=== PATIENT | female | born 1960 | race Caucasian/White ===

== ENCOUNTER → 2020-07-16 08:21 | Outpatient (BNVA) | payer BC, SELFPAY | PROVIDERS: PCP Internal Medicine; Referring Provider Internal Medicine; Visit Provider Surgery | DX: Z76.89 Persons encountering health services in other specified circumstances (principal) ==

== ENCOUNTER → 2020-08-12 08:08 | Outpatient (BNVA) | payer BC, SELFPAY | PROVIDERS: PCP Internal Medicine; Referring Provider Internal Medicine; Visit Provider Surgery | DX: Z76.89 Persons encountering health services in other specified circumstances (principal) ==

== ENCOUNTER → 2020-09-23 08:23 | Outpatient (BNVA) | payer BC, SELFPAY | PROVIDERS: PCP Internal Medicine; Visit Provider Surgery | DX: Z76.89 Persons encountering health services in other specified circumstances (principal) ==

== ENCOUNTER → 2020-10-25 08:14 | Outpatient (BNVA) | payer BC, SELFPAY | PROVIDERS: PCP Internal Medicine; Visit Provider Surgery | DX: Z76.89 Persons encountering health services in other specified circumstances (principal) ==

== ENCOUNTER → 2020-11-06 10:54 | Outpatient (BNVA) | payer BC, SELFPAY | PROVIDERS: PCP Internal Medicine; Visit Provider Internal Medicine | DX: Z76.89 Persons encountering health services in other specified circumstances (principal) ==

== ENCOUNTER → 2020-11-29 08:25 | Outpatient (BNVA) | payer BC, SELFPAY | PROVIDERS: PCP Internal Medicine; Visit Provider Surgery ==

== ENCOUNTER → 2021-01-03 08:17 | Outpatient (BNVA) | payer BC, SELFPAY | PROVIDERS: PCP Internal Medicine; Visit Provider Surgery ==

== ENCOUNTER → 2021-02-12 08:07 | Outpatient (BNVA) | payer BC, SELFPAY | PROVIDERS: PCP Internal Medicine; Visit Provider Surgery ==

== ENCOUNTER → 2022-01-15 09:39 | Outpatient (BNVA) | payer BC, SELFPAY | PROVIDERS: PCP Internal Medicine; Visit Provider Internal Medicine | DX: I48.0 Paroxysmal atrial fibrillation (principal); Z79.899 Other long term (current) drug therapy; Z98.84 Bariatric surgery status; Z51.81 Encounter for therapeutic drug level monitoring | CPT/HCPCS: 93005 ==

== ENCOUNTER 2023-05-18 11:29 | Emergency (ER) | payer BC, SELFPAY ==
--- NOTE | ~2023-05-18 | CT_ITS ---
EXAMINATION: CT ABDOMEN AND PELVIS WITHOUT CONTRAST CLINICAL INFORMATION: Lower abdominal pain. COMPARISON: Abdominal ultrasound dated 05/09/2020. TECHNIQUE: Multidetector volumetric imaging was performed from the superior aspect of the liver through the pubic symphysis. Sagittal and coronal reformatted images were obtained on the technologist's workstation. Lack of intravenous and oral contrast limits visceral evaluation. This CT examination was performed using dose optimization techniques as appropriate, variously including the following: *Automated exposure control *Adjustment of mA and/or kV according to patient size (this includes techniques or standardized protocols for targeted exams where dose is matched to indication/reason for exam; i.e. extremities or head) *Use of iterative reconstruction technique DLP: 712 mGy-cm FINDINGS: LUNG BASES: The visualized lung bases are unremarkable. LIVER, GALLBLADDER, AND BILIARY TREE: Hepatic diffuse decreased attenuation and cirrhosis without focal abnormality. Tiny intraluminal calcifications without surrounding abnormality. No significant biliary ductal dilatation. PANCREAS: Unremarkable. SPLEEN: Unremarkable. ADRENAL GLANDS: Unremarkable. KIDNEYS AND URETERS: The kidneys are normal in size, shape, and attenuation. No hydronephrosis, hydroureter, or calculi seen. No perinephric stranding. BLADDER: Unremarkable. GASTROINTESTINAL TRACT: Post surgical changes are seen proximally in the stomach without abnormality distally. The remainder of the stomach and appendix are unremarkable. The colon ABDOMINAL WALL: No significant hernia is appreciated. LYMPH NODES: No lymphadenopathy. VASCULAR: Upper esophageal and paraesophageal varices are seen. Mild to moderate atherosclerosis. No significant dilatation. PELVIC VISCERA: Coarse calcifications associated with the uterus without abnormality. No adnexal abnormality. OSSEOUS STRUCTURES: Mild degenerative disc disease at L5-S1. Mild superior plate compression deformity with Schmorl's node at T11. CT/CT abdomen pelvis wo IV con IMPRESSION: 1. Hepatic steatosis and cirrhosis without focal abnormality. Upper esophageal/paraesophageal varices without other significant abnormality. 2. Cholelithiasis without evidence for acute cholecystitis. 3. Proximal gastric postsurgical changes without abnormality. 4. L5-S1 mild degenerative disc disease.
[2023-05-18 11:32] VITALS: BP 184/95; PULSE 113; RESP 18; TEMP 36.8; O2SAT 95; BMI 29.0
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
[2023-05-18 11:50] LABS: MANUAL DIFF FLAG NO
[2023-05-18 11:51] LABS: Basophils Percent Auto 0.5 % (0-2); Eosinophils Absolute Auto 0.1 X10*3/uL (0.0-0.4); Eosinophils Percent Auto 2.2 % (0-4); Hematocrit 45.8 % (37.0-47.0); Hemoglobin 15.9 g/dl (12.0-16.0); Imm Gran Abs Auto 0.01 X10*3/uL (0.00-0.03); Imm Gran Pct Auto 0.2 % (0.0-0.4); Lymphocytes Absolute Auto 2.2 X10*3/uL (1.2-4.9); Lymphocytes Percent Auto 36.4 % (20-40); Mean Corpuscular HGB Conc 34.7 g/dl (31.0-35.0); Mean Corpuscular Hemoglobin 35.3 pg (27.0-33.0); Mean Corpuscular Volume 101.8 fL (80.0-98.0); Monocytes Absolute Auto 0.5 X10*3/uL (0.1-1.2); Monocytes Percent Auto 8.6 % (2-11); Neutrophils Absolute Auto 3.1 x10*3/uL (2.0-8.3); Neutrophils Percent Auto 52.1 % (45-73); Platelet Count 169 X10*3/uL (160-400); Red Cell Distribution Width 15.6 % (11.0-16.0); White Blood Count 5.9 X10*3/uL (4.8-10.8)
[2023-05-18 12:14] LABS: Alanine Aminotransferase 25 U/L (0-31); Albumin Level 4.2 g/dL (3.5-5.0); Alkaline Phosphatase 103 U/L (39-117); Anion Gap 14 (12-20); Aspartate Amino Transferase 30 U/L (5-31); Bilirubin Direct 0.7 mg/dL (0.0-0.5); Blood Urea Nitrogen 5 mg/dL (9-16); Carbon Dioxide 27 mmol/L (22-29); Chloride 106 mmol/L (96-108); Creatinine Clr Calc Pharmacy 89.8; Estimated Glomerular Filt Rate > 60; Glucose Random 92 mg/dL (60-115); Lipase 15 U/L (8-78); Magnesium 1.8 mg/dL (1.6-2.6); Potassium 3.8 mmol/L (3.3-5.1); Sodium 143 mmol/L (135-145); Total Protein 7.3 g/dL (6.5-8.0)
[2023-05-18 15:56] VITALS: BP 136/58; PULSE 86; RESP 16; TEMP 36.9; O2SAT 95
[2023-05-18 17:26] LABS: Appearance Urine Turbid; Color Urine Orange; Glucose Urine UA Negative (Negative); Leukocyte Esterase Urine Small (1+) (Negative); Nitrite Urine Positive (Negative); PH 5.5 (5.0-9.0); Specific Gravity - Urine 1.025 (1.005-1.025); UMIC TRIGGER UACC YES; Urine Blood Negative (Negative); Urine Ketones Trace mg/dL (Negative); Urine Protein Trace mg/dL (Neg-Trace)
[2023-05-18 17:27] LABS: Bacteria Urine 2+ (None Seen); Calcium Oxalate Crystals Urine Present; RBC Urine >20 /HPF (0-2); UACC Culture Trigger YES; WBC Urine 21-50 /HPF (0-5)
[2023-05-18 18:08] VITALS: BP 137/63; PULSE 81; RESP 16; TEMP 36.5; O2SAT 92
== END 2023-05-18 18:30 | disposition home or self-care (01) ==
PROVIDERS: Physician Assistant; Emergency Provider Emergency Medicine Emergency Medical Services; PCP Internal Medicine
DX: R33.9 Retention of urine, unspecified (principal); R20.0 Anesthesia of skin; R10.2 Pelvic and perineal pain; Z79.899 Other long term (current) drug therapy
CPT/HCPCS: 36415; 74176; 80048; 80076; 81001; 81003; 83690; 83735; 85025; 87086; 99284

== ENCOUNTER 2023-06-06 12:41 | Emergency (ER) | payer BC, SELFPAY ==
--- NOTE | ~2023-06-06 | CT_ITS ---
EXAMINATION: CT ABDOMEN AND PELVIS WITH CONTRAST CLINICAL INFORMATION: Abdominal pain COMPARISON: 05/18/2023 TECHNIQUE: Multidetector volumetric images were obtained from the superior aspect of the liver through the pubic symphysis following administration 85 mL of Omnipaque 350 intravenous contrast. Sagittal and coronal reformatted images were obtained on the technologist's workstation. Oral contrast: No This CT examination was performed using dose optimization techniques as appropriate, variously including the following: *Automated exposure control *Adjustment of mA and/or kV according to patient size (this includes techniques or standardized protocols for targeted exams where dose is matched to indication/reason for exam; i.e. extremities or head) *Use of iterative reconstruction technique DLP: 673 mGy-cm FINDINGS: LUNG BASES: The visualized lung bases are unremarkable. LIVER, GALLBLADDER, AND BILIARY TREE: Shrunken liver with nodular contour. Diffuse hepatic steatosis. Low density exophytic hypodense lesion arising from the posterior right lobe measuring 1.3 cm. Small stones layering dependently in the gallbladder. Incidentally noted phrygian cap. PANCREAS: Unremarkable. SPLEEN: The spleen measures limits of normal at 13.3 cm. ADRENAL GLANDS: Unremarkable. KIDNEYS AND URETERS: The kidneys are normal in size, shape, and attenuation. No hydronephrosis, hydroureter, or calculi seen. No perinephric stranding. BLADDER: Unremarkable. GASTROINTESTINAL TRACT: Status post sleeve gastrectomy The small and large bowel are unremarkable. The appendix is unremarkable. ABDOMINAL WALL: No significant hernia is appreciated. LYMPH NODES: Normal. VASCULAR: The abdominal aorta is normal in caliber. The portal system is patent. Enlarged splenic vein and large splenorenal shunt. PELVIC VISCERA: Fibroid uterus OSSEOUS STRUCTURES: Unremarkable. CT/CT abdomen pelvis w IV con IMPRESSION: 1. Cirrhotic, steatotic liver with exophytic hypodense lesion arising from the posterior right lobe measuring 1.3 cm. Given the low density of this lesion is favored represent a hepatic cyst. Consider dedicated ultrasound or MRI for further evaluation given the patient's history of cirrhosis. 2. Prominent splenic vein and large splenorenal shunt with portal hypertension. Fleischner guidelines were followed.
[2023-06-06 12:44] VITALS: BP 131/71; PULSE 97; RESP 18; TEMP 36.9; O2SAT 94; BMI 29.0
--- NOTE | 2023-06-06 12:44 | ED.GENADULT ---
HPI - General Adult General Chief complaint: Abdominal Pain Stated complaint: Leg numbness/Headache/Abd pain Time Seen by Provider: 06/06/23 13:12 Source: patient Mode of arrival: ambulatory History of Present Illness HPI narrative: This is 62 years old female presented to the emergency department complaining of abdominal pain, bloating she also states that she feels numbness in the lower abdomen and thighs. Patient drove herself to the emergency department she is fully ambulatory, she had a prior visit on May 18 for the same complain with negative workup. Patient has also history of chronic pain syndrome she is on chronic narcotic she has history of fibromyalgia she has history of bariatric surgery in the past by Dr. Parker. Her pain is been going on for months. Onset (ago): month(s) Location: abdomen Radiation: non-radiation Severity: mild Quality: burning Pain Consistency: constant Associated symptoms: denies other symptoms Related Data Home Medications Medication Instructions Recorded Confirmed albuterol sulfate 90 mcg/actuation 2 puff inhalation Q4H 07/06/20 01/15/22 aerosol inhaler fentanyl 50 mcg/hr transdermal 1 patch topical Q OTHER DAY 07/06/20 01/15/22 patch gabapentin 600 mg tablet 1,200 mg PO TID 07/06/20 01/15/22 oxycodone-acetaminophen 10 mg-325 1 tab PO TID PRN 07/06/20 01/15/22 mg tablet Previous Rx's Medication Instructions Recorded diltiazem HCl 120 mg 120 mg PO DAILY #90 caps 05/03/23 capsule,extended release 24 hr cephalexin 500 mg capsule 500 mg PO Q8H #21 caps 06/06/23 Allergies Allergy/AdvReac Type Severity Reaction Status Date / Time bee pollen [BEE STINGS] Allergy Unknown RASH Verified 06/06/23 12:50 ketorolac [From TORADOL] Allergy Unknown AGGITATION Verified 06/06/23 12:50 latex [LATEX] Allergy Unknown RASH Verified 06/06/23 12:50 pentazocine [From Talwin] Allergy Unknown Anaphylaxis Verified 06/06/23 12:50 Review of Systems ENT: Reports system reviewed and no additional complaints, except as documented Cardiovascular: Cardiovascular: Reports no additional cardiovascular complaints Respiratory: Respiratory: Reports no additional respiratory complaints Gastrointestinal: Gastrointestinal: Reports abdominal pain PMFSH Past Medical History Medical History COPD (chronic obstructive pulmonary disease) 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 Mother No problems noted. Brother No problems noted. Sister No problems noted. Social History Social History Alcohol intake: current Alcohol intake frequency: 0-2 drinks per day Use of substances other than those prescribed or required for medical reasons: Yes Substance Use Type: Marijuana Advance Directives: No Advance Directives Information Provided: Yes Physical Exam ED Vital Signs: Vital Signs - 24 hr 06/06/23 12:44 06/06/23 15:47 Temperature 98.4 F 98.2 F Pulse Rate 97 75 Respiratory Rate 18 16 Blood Pressure 131/71 118/63 Pulse Oximetry 94 93 Oxygen Delivery Method Room Air Room Air BMI result Body Mass Index 29.0 Const General: cooperative, no acute distress, well developed and alert Nutritional Appearance: average body habitus Orientation/consciousness: patient oriented x3 Limitations: no limitations HENMT Head: Yes normal to inspection Face and sinus: Yes normal facial exam Throat: Yes posterior oropharynx normal Neck Neck: Yes normal visual inspection and Yes full ROM Chest Chest palpation & inspection: normal inspection of the chest Resp Effort & Inspection: normal respiratory effort Auscultation: clear to auscultation bilaterally Cardio Jugular venous distension: no JVD Rate: regular rate Rhythm: regular rhythm GI Inspection: Yes normal to inspection Palpation (GI): Soft to palpation, not firm, nontender and no guarding Percussion: Yes normal to percussion Skin General skin exam: no rashes or lesions noted, elasticity normal and turgor normal Lesions: no lesions Rashes: no rashes Neuro General: patient oriented x3 and gait normal Cranial nerves: Yes CN's II-XII intact bilaterally Gait exam (Neuro): Normal gait present Motor exam (neuro): 5/5 motor strength present throughout Course Course Course Narrative: This is an RME: Additional HPI, ROS, PE not included below will be deferred to primary provider. Patient is a 62-year-old female who presents to the emergency department with complaints of. Reports she was seen in the emergency department earlier this month for lower abdominal pain, reporting that she had a CT scan of her abdomen which was normal. Despite this her pain and it has been persistent, she is awaiting a follow-up appointment with her primary care provider next month. She also endorses feeling fatigued, tremulous, generalized weakness, headache, constipation. Denies fevers, chills, genitourinary symptoms Plan: Labs, urinalysis Medications Administered Discontinued Medications Generic Name Dose Route Start Last Admin Trade Name Freq PRN Reason Stop Dose Admin Iohexol 85 ml 06/06/23 14:32 06/06/23 14:32 Iohexol 350 Mg/Ml 100 Ml Infus..Btl IV 06/06/23 14:33 85 ml ONCE ONE Administration Lorazepam 1 mg 06/06/23 13:51 06/06/23 14:09 Lorazepam 1 Mg Tablet PO 06/06/23 13:52 1 mg ONCE ONE Administration Medical Decision Making Medical Decision Making [facility] Narrative: Patient presented with lower abdominal pain and multiple complains labs resulted showed normal white count, vital signs stable, CT scan showed a cirrhotic liver. I think the patient can be discharged home a follow-up with primary care physician. Also will referred to Gastroenterology, UA shows evidence of a UTI will treat UTI Differential Diagnosis Differential Diagnoses: The differential diagnosis associated with the presentation includes Diverticulitis/colitis/small-bowel obstruction Admission/Observation Consideration of admission/observation: Escalation of care including admission/observation considered Lab Data [facility] Lab Attestation statement: I reviewed the patient's lab results. 06/06/23 13:40 06/06/23 13:40 Labs: Lab Results 06/06/23 06/06/23 06/06/23 Range/Units 13:40 13:40 13:40 WBC 4.5 L (4.8-10.8) X10*3/uL RBC 4.40 (4.20-5.50) X10*6/uL Hgb 15.3 (12.0-16.0) g/dl Hct 45.5 (37.0-47.0) % MCV 103.4 H (80.0-98.0) fL MCH 34.8 H (27.0-33.0) pg MCHC 33.6 (31.0-35.0) g/dl RDW 13.6 (11.0-16.0) % Plt Count 107 L D (160-400) X10*3/uL MPV 10.9 (9.4-12.3) fL Immature Gran % (Auto) 0.0 (0.0-0.4) % Neut % (Auto) 57.7 (45-73) % Lymph % (Auto) 28.8 (20-40) % [place] % (Auto) 7.9 (2-11) % Eos % (Auto) 4.9 H (0-4) % Baso % (Auto) 0.7 (0-2) % Lymph # (Auto) 1.3 (1.2-4.9) X10*3/uL [place] # (Auto) 0.4 (0.1-1.2) X10*3/uL Eos # (Auto) 0.2 (0.0-0.4) X10*3/uL Baso # (Auto) 0.0 (0.0-0.2) X10*3/uL Abs Immat Gran (auto) 0.00 (0.00-0.03) X10*3/uL Absolute Neuts (auto) 2.6 (2.0-8.3) x10*3/uL Absolute Nucleated RBC 0.000 (0.0-0.012) X10*3/uL Nucleated RBC % (auto) 0.0 (0.0-0.2) /100WBC Sodium 142 (135-145) mmol/L Potassium 3.8 (3.3-5.1) mmol/L Chloride 105 (96-108) mmol/L Carbon Dioxide 29 (22-29) mmol/L Anion Gap 12 (12-20) BUN 4 L (9-16) mg/dL Creatinine 0.70 (0.5-1.4) mg/dL Estim Creat Clear Calc 89.8 Estimated GFR > 60 Random Glucose 106 (60-115) mg/dL Calcium 9.9 (8.4-10.2) mg/dL Magnesium 1.7 (1.6-2.6) mg/dL Total Bilirubin 2.3 H (0.0-1.0) mg/dL AST 30 (5-31) U/L ALT 17 (0-31) U/L Alkaline Phosphatase 87 (39-117) U/L Total Protein 6.9 (6.5-8.0) g/dL Albumin 3.9 (3.5-5.0) g/dL Lipase 17 (8-78) U/L Urine Color Urine Appearance Urine pH (5.0-9.0) Ur Specific [place] (1.005-1.025) Urine Protein (Neg-Trace) mg/dL Urine Glucose (UA) (Negative) mg/dL Urine Ketones (Negative) mg/dL Urine Blood (Negative) Urine Nitrite (Negative) Ur Leukocyte Esterase (Negative) Urine RBC (0-2) /HPF Urine WBC (0-5) /HPF Urine WBC Clumps Ur Squamous Epith Cells (0-2) /HPF Urine Bacteria (None Seen) Hyaline Casts (0-2) /LPF COVID-19 (DEVYN) Negative (Negative) COVID-19 Clin Com See Note 06/06/23 Range/Units 14:17 WBC (4.8-10.8) X10*3/uL RBC (4.20-5.50) X10*6/uL Hgb (12.0-16.0) g/dl Hct (37.0-47.0) % MCV (80.0-98.0) fL MCH (27.0-33.0) pg MCHC (31.0-35.0) g/dl RDW (11.0-16.0) % Plt Count (160-400) X10*3/uL MPV (9.4-12.3) fL Immature Gran % (Auto) (0.0-0.4) % Neut % (Auto) (45-73) % Lymph % (Auto) (20-40) % [place] % (Auto) (2-11) % Eos % (Auto) (0-4) % Baso % (Auto) (0-2) % Lymph # (Auto) (1.2-4.9) X10*3/uL [place] # (Auto) (0.1-1.2) X10*3/uL Eos # (Auto) (0.0-0.4) X10*3/uL Baso # (Auto) (0.0-0.2) X10*3/uL Abs Immat Gran (auto) (0.00-0.03) X10*3/uL Absolute Neuts (auto) (2.0-8.3) x10*3/uL Absolute Nucleated RBC (0.0-0.012) X10*3/uL Nucleated RBC % (auto) (0.0-0.2) /100WBC Sodium (135-145) mmol/L Potassium (3.3-5.1) mmol/L Chloride (96-108) mmol/L Carbon Dioxide (22-29) mmol/L Anion Gap (12-20) BUN (9-16) mg/dL Creatinine (0.5-1.4) mg/dL Estim Creat Clear Calc Estimated GFR Random Glucose (60-115) mg/dL Calcium (8.4-10.2) mg/dL Magnesium (1.6-2.6) mg/dL Total Bilirubin (0.0-1.0) mg/dL AST (5-31) U/L ALT (0-31) U/L Alkaline Phosphatase (39-117) U/L Total Protein (6.5-8.0) g/dL Albumin (3.5-5.0) g/dL Lipase (8-78) U/L Urine Color DK YELLOW Urine Appearance Cloudy Urine pH 5.5 (5.0-9.0) Ur Specific [place] 1.025 (1.005-1.025) Urine Protein 30 (1+) H (Neg-Trace) mg/dL Urine Glucose (UA) Negative (Negative) mg/dL Urine Ketones Trace (Negative) mg/dL Urine Blood Trace (Negative) Urine Nitrite Positive H (Negative) Ur Leukocyte Esterase Moderate (2+) H (Negative) Urine RBC 0-2 (0-2) /HPF Urine WBC >50 H (0-5) /HPF Urine WBC Clumps Present Ur Squamous Epith Cells 3-5 (0-2) /HPF Urine Bacteria 3+ (None Seen) Hyaline Casts 0-2 (0-2) /LPF COVID-19 (DEVYN) (Negative) COVID-19 Clin Com Independent Interpretation I performed an independent interpretation of an: CT Scan Interpretation: No evidence of bowel obstruction no evidence of perforations no evidence of colitis Radiology Impression Discussion of test interpretation with radiology: I have reviewed the radiologist's reading. External Record Review External record reviewed: Inpatient record Prescription Management I considered prescription management with: Pain Medication I considered pain medicine a the patient he has chronic pain she is already on fentanyl Chronic Conditions Patient?s care impacted by: Other (Chronic pain syndrome on fentanyl) Discharge Plan Discharge Clinical Impression: UTI (urinary tract infection), Abdominal pain Patient Disposition: Home, Self-Care Instructions: Urinary Tract Infection in Women (ED), Abdominal Pain (ED) Additional Instructions: Follow-up with your primary care physician call tomorrow make an appointment, also follow-up with skin care therapist we gave you the number of Dr. Wang, we sent a prescription for antibiotic for UTI Prescriptions: New cephalexin 500 mg capsule 500 mg PO Q8H Qty: 21 0RF No Action diltiazem HCl 120 mg capsule,extended release 24hr 120 mg PO DAILY Qty: 90 0RF Rx Instructions: OVERDUE FOR APPT. PLEASE CALL [phone] TO SCHEDULE FOLLOW UP FOR 2022 SO WE CAN CONTINUE REFILLING YOUR MEDICATIONS. If you do not want to schedule appt with planner chief, you can opt to get future refills from your PCP. Thank you gabapentin 600 mg tablet 1,200 mg PO TID oxycodone-acetaminophen 10-325 mg tablet 1 tab PO TID PRN fentanyl 50 mcg/hr patch 72 hour 1 patch topical Q OTHER DAY albuterol sulfate 90 mcg/actuation HFA aerosol inhaler 2 puff inhalation Q4H Referrals: Adilia Wang MD [Physician] - 2 days
[2023-06-06 14:00] LABS: MANUAL DIFF FLAG NO
[2023-06-06 14:07] LABS: Basophils Percent Auto 0.7 % (0-2); Eosinophils Absolute Auto 0.2 X10*3/uL (0.0-0.4); Eosinophils Percent Auto 4.9 % (0-4); Hematocrit 45.5 % (37.0-47.0); Hemoglobin 15.3 g/dl (12.0-16.0); Lymphocytes Absolute Auto 1.3 X10*3/uL (1.2-4.9); Lymphocytes Percent Auto 28.8 % (20-40); Mean Corpuscular HGB Conc 33.6 g/dl (31.0-35.0); Mean Corpuscular Hemoglobin 34.8 pg (27.0-33.0); Mean Corpuscular Volume 103.4 fL (80.0-98.0); Mean Platelet Volume 10.9 fL (9.4-12.3); Monocytes Absolute Auto 0.4 X10*3/uL (0.1-1.2); Monocytes Percent Auto 7.9 % (2-11); Neutrophils Absolute Auto 2.6 x10*3/uL (2.0-8.3); Neutrophils Percent Auto 57.7 % (45-73); Platelet Count 107 X10*3/uL (160-400); Red Cell Distribution Width 13.6 % (11.0-16.0); White Blood Count 4.5 X10*3/uL (4.8-10.8)
[2023-06-06] MEDS: LORazepam 1 MG TABLET PO (14:09)
[2023-06-06 14:15] LABS: Alanine Aminotransferase 17 U/L (0-31); Albumin Level 3.9 g/dL (3.5-5.0); Alkaline Phosphatase 87 U/L (39-117); Anion Gap 12 (12-20); Aspartate Amino Transferase 30 U/L (5-31); Bilirubin Total 2.3 mg/dL (0.0-1.0); Blood Urea Nitrogen 4 mg/dL (9-16); Calcium 9.9 mg/dL (8.4-10.2); Carbon Dioxide 29 mmol/L (22-29); Chloride 105 mmol/L (96-108); Creatinine Clr Calc Pharmacy 89.8; Estimated Glomerular Filt Rate > 60; Glucose Random 106 mg/dL (60-115); Lipase 17 U/L (8-78); Magnesium 1.7 mg/dL (1.6-2.6); Potassium 3.8 mmol/L (3.3-5.1); Sodium 142 mmol/L (135-145); Total Protein 6.9 g/dL (6.5-8.0)
[2023-06-06 14:18] LABS: COVID-19 Test Negative (Negative); IDNOW Serial# 08D9AD1C
--- NOTE | 2023-06-06 14:20 | PC.NURSE ---
pt medicated per MAR for increased anxiety, 20G IV placed right AC, urine sample collected and sent to lab, pt to CT. pending lab results.
[2023-06-06 14:24] LABS: Appearance Urine Cloudy; Color Urine DK YELLOW; Glucose Urine UA Negative (Negative); Leukocyte Esterase Urine Moderate (2+) (Negative); Nitrite Urine Positive (Negative); PH 5.5 (5.0-9.0); Specific Gravity - Urine 1.025 (1.005-1.025); UMIC TRIGGER UACC YES; Urine Blood Trace (Negative); Urine Ketones Trace mg/dL (Negative); Urine Protein 30 (1+) mg/dL (Neg-Trace)
[2023-06-06] MEDS: iohexoL 350 MG/ML 100 ML INFUS..BTL 85 ML IV (14:32)
[2023-06-06 14:35] LABS: Bacteria Urine 3+ (None Seen); Hyaline Casts Urine 0-2 /LPF (0-2); RBC Urine 0-2 /HPF (0-2); UACC Culture Trigger YES; WBC Urine >50 /HPF (0-5)
[2023-06-06 14:36] LABS: WBC Clumps Urine Present
[2023-06-06 15:47] VITALS: BP 118/63; PULSE 75; RESP 16; TEMP 36.8; O2SAT 93
== END 2023-06-06 16:38 | disposition home or self-care (01) ==
PROVIDERS: Nurse Practitioner Family; Emergency Provider Emergency Medicine; PCP Internal Medicine
DX: N39.0 Urinary tract infection, site not specified (principal); R10.30 Lower abdominal pain, unspecified; J44.9 Chronic obstructive pulmonary disease, unspecified; I48.91 Unspecified atrial fibrillation; Z79.899 Other long term (current) drug therapy; Z20.822 Contact with and (suspected) exposure to COVID-19
CPT/HCPCS: 74177; 80053; 81001; 83690; 83735; 85025; 87086; 87088; 87186; 87635; 99284; Q9967

== ENCOUNTER 2023-10-23 20:08 | Emergency (ER) | payer BC, SELFPAY ==
--- NOTE | ~2023-10-23 | XR_ITS ---
EXAMINATION: XR ABDOMEN KUB CLINICAL INDICATION: Constipation COMPARISON: 06/06/2023 (CT) TECHNIQUE: AP view of the abdomen. FINDINGS: Moderate to large stool burden. Nondilated bowel gas pattern. Lung bases are clear. Surgical clips are present in the upper abdomen near the diaphragmatic hiatus. Calcified fibroid in the central pelvis along with multiple phleboliths and a surgical staple. Facet arthropathy in the lower lumbar spine. Mild osteoarthritis in the SI joints. XR/XR KUB IMPRESSION: Moderate to large stool burden. Nondilated bowel gas pattern.
--- NOTE | ~2023-10-23 | CT_ITS ---
EXAMINATION: CT ABDOMEN AND PELVIS WITH CONTRAST CLINICAL INFORMATION: Abdominal distention. Gastric sleeve surgery. COMPARISON: 06/06/2023 TECHNIQUE: Multidetector volumetric images were obtained from the superior aspect of the liver through the pubic symphysis following administration 85 mL of Omnipaque 350 intravenous contrast. Sagittal and coronal reformatted images were obtained on the technologist's workstation. Oral contrast: Yes This CT examination was performed using dose optimization techniques as appropriate, variously including the following: *Automated exposure control *Adjustment of mA and/or kV according to patient size (this includes techniques or standardized protocols for targeted exams where dose is matched to indication/reason for exam; i.e. extremities or head) *Use of iterative reconstruction technique DLP: 683 mGy-cm FINDINGS: LUNG BASES: Minimal dependent atelectasis. Small hiatal hernia. LIVER, GALLBLADDER, AND BILIARY TREE: Shrunken, nodular cirrhotic liver. A few small subcentimeter hypodensities are too small to characterize. There is a 1.3 cm cystic focus of hypoattenuation at the posteroinferior aspect of the right hepatic lobe which is unchanged as compared to prior, likely a cyst. Cholelithiasis. No evidence of acute cholecystitis. Incidental note is a phrygian cap morphology. PANCREAS: Unremarkable. SPLEEN: Enlarged, measuring 15 cm craniocaudal. ADRENAL GLANDS: Unremarkable. KIDNEYS AND URETERS: The kidneys are normal in size, shape, and attenuation. No hydronephrosis, hydroureter, or calculi seen. No perinephric stranding. BLADDER: Unremarkable. GASTROINTESTINAL TRACT: Status post gastric sleeve bariatric surgery with a small hiatal hernia. Small bowel and colon are normal in caliber with a moderate volume of stool throughout the colon. Mild colonic diverticulosis. No evidence of acute diverticulitis. No bowel wall thickening or surrounding inflammatory changes. Appendix is normal. No intraperitoneal free fluid or free air. ABDOMINAL WALL: No significant hernia is appreciated. LYMPH NODES: Normal. VASCULAR: Mild calcific atherosclerosis in the abdominal aorta and iliac arteries. No aneurysmal dilatation. There are multiple portosystemic collaterals including ascending paraesophageal varices and a large splenorenal shunt. Portal system is patent. PELVIC VISCERA: Multiple calcified uterine fibroids are noted. No acute uterine findings. No adnexal lesions. OSSEOUS STRUCTURES: Marked facet arthropathy at L4-L5. Mild to moderate multilevel degenerative disc disease. Chronic superior endplate compression deformity at the level of T11, unchanged. CT/CT abdomen pelvis w IV con IMPRESSION: 1. No acute intra-abdominal or intrapelvic abnormalities. Status post gastric sleeve bariatric surgery with a small hiatal hernia. 2. Hepatic cirrhosis with portal hypertension including splenomegaly and portosystemic collaterals. Previously seen 1.3 cm cystic hypodensity in the right hepatic lobe likely corresponds to a cyst, though is indeterminate in the setting of cirrhosis. Consider follow-up MRI of the abdomen with and without contrast if warranted. 3. Cholelithiasis without evidence of acute cholecystitis. 4. Mild colonic diverticulosis without evidence of acute diverticulitis. Fleischner guidelines were followed.
[2023-10-23 20:25] VITALS: BP 137/61; PULSE 73; RESP 18; TEMP 37.1; O2SAT 93; BMI 28.7
--- NOTE | 2023-10-23 21:02 | MHC.EDTECH ---
Patient brought into triage area,labs obtained and sent to lab.
[2023-10-23 21:13] LABS: MANUAL DIFF FLAG NO
[2023-10-23 21:16] LABS: Basophils Percent Auto 0.3 % (0-2); Eosinophils Absolute Auto 0.2 X10*3/uL (0.0-0.4); Eosinophils Percent Auto 5.4 % (0-4); Hematocrit 30.5 % (37.0-47.0); Hemoglobin 9.8 g/dl (12.0-16.0); Imm Gran Abs Auto 0.01 X10*3/uL (0.00-0.03); Imm Gran Pct Auto 0.3 % (0.0-0.4); Lymphocytes Percent Auto 30.7 % (20-40); Mean Corpuscular HGB Conc 32.1 g/dl (31.0-35.0); Mean Corpuscular Hemoglobin 30.4 pg (27.0-33.0); Mean Corpuscular Volume 94.7 fL (80.0-98.0); Mean Platelet Volume 10.4 fL (9.4-12.3); Monocytes Absolute Auto 0.3 X10*3/uL (0.1-1.2); Monocytes Percent Auto 8.7 % (2-11); Neutrophils Absolute Auto 1.8 x10*3/uL (2.0-8.3); Neutrophils Percent Auto 54.6 % (45-73); Red Blood Count 3.22 X10*6/uL (4.20-5.50); Red Cell Distribution Width 13.1 % (11.0-16.0); White Blood Count 3.4 X10*3/uL (4.8-10.8)
[2023-10-23 21:30] LABS: Alanine Aminotransferase 14 U/L (0-31); Alkaline Phosphatase 110 U/L (39-117); Anion Gap 12 (12-20); Aspartate Amino Transferase 23 U/L (5-31); Bilirubin Direct 0.7 mg/dL (0.0-0.5); Bilirubin Total 1.2 mg/dL (0.0-1.0); Blood Urea Nitrogen 18 mg/dL (9-16); Calcium 8.9 mg/dL (8.4-10.2); Carbon Dioxide 25 mmol/L (22-29); Chloride 112 mmol/L (96-108); Creatinine Clr Calc Pharmacy 56.5; Estimated Glomerular Filt Rate 51; Glucose Random 92 mg/dL (60-115); Sodium 145 mmol/L (135-145); Total Protein 6.2 g/dL (6.5-8.0)
[2023-10-23 21:34] LABS: Platelet Count 91 X10*3/uL (160-400)
[2023-10-24 00:41] VITALS: BP 115/47; PULSE 66; RESP 16; TEMP 36.6; O2SAT 98
[2023-10-24 02:00] VITALS: BP 132/69; PULSE 88; RESP 18; TEMP 36.9; O2SAT 94
--- NOTE | 2023-10-24 02:23 | ED.ABDPAIN ---
HPI - Abdominal Pain General Chief Complaint: Abdominal Pain Stated Complaint: Lower abd pain goes to the back/constipation Time Seen by Provider: 10/24/23 02:13 Source: patient Mode of arrival: ambulatory Limitations: no limitations History of Present Illness HPI narrative: 63-year-old female paroxysmal atrial fibrillation, COPD, ESTEFANIA, intestinal malabsorption, gastric sleeve surgery, hernia who presents emergency department for evaluation of abdominal pain x2 days. Patient states that she is not had a normal bowel movement in 2 and half weeks. She states that over the last 2 days she is been having severe, lower abdominal pain which is greater than 10/10. Patient denied fever, chills, rhinorrhea, sore throat, cough. She states that she is had intermittent episodes of vomiting but denied nausea, diarrhea, black stools or tarry stools. She states she had a similar presentation in May of 2023 -did review her ER visit from 05/18/2023 where she had abdominal pain of unclear etiology with CT scan showing cirrhosis of the liver. She was seen again on 06/06/2023 and had a repeat CT scan which again showed cirrhosis of the liver pain Related Data Home Medications Medication Instructions Recorded Confirmed albuterol sulfate 90 mcg/actuation 2 puff inhalation Q4H 07/06/20 01/15/22 aerosol inhaler fentanyl 50 mcg/hr transdermal 1 patch topical Q OTHER DAY 07/06/20 01/15/22 patch gabapentin 600 mg tablet 1,200 mg PO TID 07/06/20 01/15/22 oxycodone-acetaminophen 10 mg-325 1 tab PO TID PRN 07/06/20 01/15/22 mg tablet Previous Rx's Medication Instructions Recorded cephalexin 500 mg capsule 500 mg PO Q8H #21 caps 06/06/23 diltiazem HCl 120 mg 120 mg PO DAILY #90 caps 09/10/23 capsule,extended release 24 hr lactulose 10 gram/15 mL (15 mL) 20 g (30 mL) PO BID PRN 10/24/23 oral solution constipation #600 mL Allergies Allergy/AdvReac Type Severity Reaction Status Date / Time bee pollen [BEE STINGS] Allergy Unknown RASH Verified 10/23/23 20:28 ketorolac [From TORADOL] Allergy Unknown AGGITATION Verified 10/23/23 20:28 latex [LATEX] Allergy Unknown RASH Verified 10/23/23 20:28 pentazocine [From Talwin] Allergy Unknown Anaphylaxis Verified 10/23/23 20:28 Review of Systems Review of Systems Yes all other systems are reviewed and are negative PMFSH Past Medical History Onset Date is defined in the Problem List Problems that require an onset date and time if occurred within 24 hrs of arrival to the ED Aortic Dissection and Rupture; Neurologic impairment; Cardiopulmonary Arrest; Endotracheal Intubation; Insertion or Replacement of Mechanical Circulatory Assist Device Medical History snf current use of antiarrhythmic drug PAF (paroxysmal atrial fibrillation) COPD (chronic obstructive pulmonary disease) ESTEFANIA (obstructive sleep apnea) Intestinal malabsorption Surgical History Status post bariatric surgery History of arthroscopic knee surgery Obesity History of sleeve gastrectomy History of incisional hernia repair Family History Family History Father No problems noted. Mother No problems noted. Brother No problems noted. Sister No problems noted. Social History Social History Alcohol intake: current Alcohol intake frequency: 0-2 drinks per day Substance Use Type: Marijuana Advance Directives: No Advance Directives Information Provided: No Physical Exam ED Vital Signs: Vital Signs - 24 hr 10/23/23 20:25 10/24/23 00:41 10/24/23 02:00 Temperature 98.7 F 97.9 F 98.4 F Pulse Rate 73 66 88 Respiratory Rate 18 16 18 Blood Pressure 137/61 115/47 L 132/69 Pulse Oximetry 93 98 94 Oxygen Delivery Method Room Air Room Air Room Air 10/24/23 04:00 Temperature 98.6 F Pulse Rate 71 Respiratory Rate 16 Blood Pressure 139/56 L Pulse Oximetry 90 L Oxygen Delivery Method Room Air BMI result Body Mass Index 28.7 Vital signs were normal Exam: General: Awake, alert in no distress Head: Normocephalic, atraumatic EENT: PERRL, Lids normal, sclera normal, conjunctiva normal, nose normal , ears normal, throat without erythema or exudates Neck: Supple, no adenopathy, no trachea midline or C-spine tenderness Lung: breath sounds symmetric, no wheezing, rales or rhonchi Chest: symmetric movement, nontender Heart: regular rate and rhythm, normal S1, S2 no murmurs or rubs Abdomen: Abdomen appears to be distended, she is normoactive bowel sounds, she has moderate lower abdominal tenderness and mild to moderate diffuse abdominal tenderness Back: no vertebral tenderness, no CVAT Extremities: no deformities, moves all extremities symmetrically Neuro: Awake, alert, oriented, normal speech, cranial nerves intact, moves all extremities symmetrically Psych: Pleasant, cooperative Medical Decision Making Medical Decision Making MDM Narrative: 63-year-old female paroxysmal atrial fibrillation, COPD, ESTEFANIA, intestinal malabsorption, gastric sleeve surgery, hernia who presents emergency department for evaluation of abdominal pain x2 days. Patient states that she is not had a normal bowel movement in 2 1/2 weeks. She states that over the last 2 days she is been having severe, lower abdominal pain which is greater than 10/10. Patient denied fever, chills, rhinorrhea, sore throat, cough. She states that she is had intermittent episodes of vomiting but denied nausea, diarrhea, black stools or tarry stools. Vital signs were unremarkable. Physical examination did reveal distended abdomen with normoactive bowel sounds, moderate lower abdominal and mild to moderate diffuse abdominal tenderness. Following evaluation was ordered: CBC, BMP, liver panel CT scan of the abdomen pelvis with IV contrast Patient received the following treatment: Normal saline IV x1 L, morphine 4 mg IV x2, Zofran 4 mg IV x1 06:16 My interpretation patient's laboratory evaluation is as follows: Pancytopenia: WBC 3400, H&H 9.8 and 30.5, platelet count [id number] is chronic most likely related to her cirrhosis. Chloride elevated 112. Bicarb elevated 18. Total bili elevated 1.2. Direct bili 0.7. CT scan of the abdomen pelvis with IV and oral contrast did not reveal bowel obstruction or other acute cause for pain. The patient does have cirrhosis of the liver which was seen on her [address]. The patient is not been seen by sheet metal duct installer helper for her cirrhosis. Patient will be referred to our GI doctor but told that she also needs to contact her PCP to see if she can get a GI doctor sooner. Patient does complain of constipation has not moved her bowels in 2 weeks therefore I will prescribe lactulose 30 g b.i.d. as needed for constipation. Patient was given printed and verbal instructions discharged home. Differential Diagnosis Differential Diagnoses: The differential diagnosis associated with the presentation includes Differential diagnosis includes but is not limited to gastritis, pancreatitis, biliary disease, gallbladder disease, kidney stone, electrolyte abnormalities, anemia Admission/Observation Consideration of admission/observation: Escalation of care including admission/observation considered Lab Data MDM Lab Attestation statement: I reviewed the patient's lab results. 10/23/23 21:02 10/23/23 21:02 Labs: Lab Results 10/23/23 Range/Units 21:02 WBC 3.4 L (4.8-10.8) X10*3/uL RBC 3.22 L D (4.20-5.50) X10*6/uL Hgb 9.8 L (12.0-16.0) g/dl Hct 30.5 L D (37.0-47.0) % MCV 94.7 (80.0-98.0) fL MCH 30.4 (27.0-33.0) pg MCHC 32.1 (31.0-35.0) g/dl RDW 13.1 (11.0-16.0) % Plt Count 91 L (160-400) X10*3/uL MPV 10.4 (9.4-12.3) fL Immature Gran % (Auto) 0.3 (0.0-0.4) % Neut % (Auto) 54.6 (45-73) % Lymph % (Auto) 30.7 (20-40) % Kingman % (Auto) 8.7 (2-11) % Eos % (Auto) 5.4 H (0-4) % Baso % (Auto) 0.3 (0-2) % Lymph # (Auto) 1.0 L (1.2-4.9) X10*3/uL Kingman # (Auto) 0.3 (0.1-1.2) X10*3/uL Eos # (Auto) 0.2 (0.0-0.4) X10*3/uL Baso # (Auto) 0.0 (0.0-0.2) X10*3/uL Abs Immat Gran (auto) 0.01 (0.00-0.03) X10*3/uL Absolute Neuts (auto) 1.8 L (2.0-8.3) x10*3/uL Absolute Nucleated RBC 0.000 (0.0-0.012) X10*3/uL Nucleated RBC % (auto) 0.0 (0.0-0.2) /100WBC Sodium 145 (135-145) mmol/L Potassium 4.0 (3.3-5.1) mmol/L Chloride 112 H (96-108) mmol/L Carbon Dioxide 25 (22-29) mmol/L Anion Gap 12 (12-20) BUN 18 H (9-16) mg/dL Creatinine 1.09 (0.5-1.4) mg/dL Estim Creat Clear Calc 56.5 Estimated GFR 51 Random Glucose 92 (60-115) mg/dL Calcium 8.9 D (8.4-10.2) mg/dL Total Bilirubin 1.2 H (0.0-1.0) mg/dL Direct Bilirubin 0.7 H (0.0-0.5) mg/dL AST 23 (5-31) U/L ALT 14 (0-31) U/L Alkaline Phosphatase 110 (39-117) U/L Total Protein 6.2 L (6.5-8.0) g/dL Albumin 3.0 L (3.5-5.0) g/dL Radiology Impression Discussion of test interpretation with radiology: I have reviewed the radiologist's reading. Radiologist Impression: EXAMINATION: CT ABDOMEN AND PELVIS WITH CONTRAST CLINICAL INFORMATION: Abdominal distention. Gastric sleeve surgery. COMPARISON: 06/06/2023 FINDINGS: LUNG BASES: Minimal dependent atelectasis. Small hiatal hernia. LIVER, GALLBLADDER, AND BILIARY TREE: Shrunken, nodular cirrhotic liver. A few small subcentimeter hypodensities are too small to characterize. There is a 1.3 cm cystic focus of hypoattenuation at the posteroinferior aspect of the right hepatic lobe which is unchanged as compared to prior, likely a cyst. Cholelithiasis. No evidence of acute cholecystitis. Incidental note is a phrygian cap morphology. PANCREAS: Unremarkable. SPLEEN: Enlarged, measuring 15 cm craniocaudal. ADRENAL GLANDS: Unremarkable. KIDNEYS AND URETERS: The kidneys are normal in size, shape, and attenuation. No hydronephrosis, hydroureter, or calculi seen. No perinephric stranding. BLADDER: Unremarkable. GASTROINTESTINAL TRACT: Status post gastric sleeve bariatric surgery with a small hiatal hernia. Small bowel and colon are normal in caliber with a moderate volume of stool throughout the colon. Mild colonic diverticulosis. No evidence of acute diverticulitis. No bowel wall thickening or surrounding inflammatory changes. Appendix is normal. No intraperitoneal free fluid or free air. ABDOMINAL WALL: No significant hernia is appreciated. LYMPH NODES: Normal. VASCULAR: Mild calcific atherosclerosis in the abdominal aorta and iliac arteries. No aneurysmal dilatation. There are multiple portosystemic collaterals including ascending paraesophageal varices and a large splenorenal shunt. Portal system is patent. PELVIC VISCERA: Multiple calcified uterine fibroids are noted. No acute uterine findings. No adnexal lesions. OSSEOUS STRUCTURES: Marked facet arthropathy at L4-L5. Mild to moderate multilevel degenerative disc disease. Chronic superior endplate compression deformity at the level of T11, unchanged. CT/CT abdomen pelvis w IV con IMPRESSION: 1. No acute intra-abdominal or intrapelvic abnormalities. Status post gastric sleeve bariatric surgery with a small hiatal hernia. 2. Hepatic cirrhosis with portal hypertension including splenomegaly and portosystemic collaterals. Previously seen 1.3 cm cystic hypodensity in the right hepatic lobe likely corresponds to a cyst, though is indeterminate in the setting of cirrhosis. Consider follow-up MRI of the abdomen with and without contrast if warranted. 3. Cholelithiasis without evidence of acute cholecystitis. 4. Mild colonic diverticulosis without evidence of acute diverticulitis. Fleischner guidelines were followed. Dictated By: n Prescription Management I considered prescription management with: Other (Lactulose) Medications Administered Discontinued Medications Generic Name Dose Route Start Last Admin Trade Name Freq PRN Reason Stop Dose Admin Sodium Chloride 1,000 mls @ 999 mls/hr 10/24/23 02:36 10/24/23 04:03 Ns IV 10/24/23 03:36 Infused .Q1H1M STA Infusion Iohexol 85 ml 10/24/23 04:54 10/24/23 04:55 Iohexol 350 Mg/Ml 100 Ml Infus..Btl IV 10/24/23 04:55 85 ml ONCE ONE Administration Morphine Sulfate 4 mg 10/24/23 02:36 10/24/23 03:02 Morphine Sulfate 4 Mg/Ml Cartridge IVPUSH 10/24/23 02:37 4 mg ONCE STA Administration Protocol Morphine Sulfate 4 mg 10/24/23 04:59 10/24/23 05:19 Morphine Sulfate 4 Mg/Ml Cartridge IVPUSH 10/24/23 05:00 4 mg ONCE STA Administration Protocol Ondansetron HCl 4 mg 10/24/23 02:36 10/24/23 03:00 Ondansetron Hcl 4 Mg/2 Ml Vial IVPUSH 10/24/23 02:37 4 mg ONCE ONE Administration Discharge Plan Discharge Clinical Impression: Constipation Cirrhosis of liver Qualifiers: Ascites presence: without ascites Abdominal pain Qualifiers: Abdominal location: lower abdomen, unspecified Qualified Code(s): R10.30 - Lower abdominal pain, unspecified Patient Disposition: Home, Self-Care Instructions: Cirrhosis (ED) Additional Instructions: The CT scan of your abdomen pelvis with oral and IV contrast did not reveal any bowel obstruction but did show that you have cirrhosis of the liver and this was also seen on you to previous CT scans. Your blood work revealed a low white blood cell count, red blood cell count and platelet count. This is most likely caused by your liver cirrhosis At this time I do not know what is caused your cirrhosis or your abdominal pain, but it is important that you get evaluated by sheet metal duct installer helper Continue taking medications as prescribed. Take lactulose 10 g per 15 mL, 15 mL twice a day as needed for constipation Follow-up with your doctor in 2 days to discuss your CT scan findings below and to get referred to a sheet metal duct installer helper. You can also call our sheet metal duct installer helper to see if they can follow you up as well. Please return to the emergency department if your symptoms get worse or if you develop any symptoms that are concerning to you. CT abdomen pelvis w IV con IMPRESSION: 1. No acute intra-abdominal or intrapelvic abnormalities. Status post gastric sleeve bariatric surgery with a small hiatal hernia. 2. Hepatic cirrhosis with portal hypertension including splenomegaly and portosystemic collaterals. Previously seen 1.3 cm cystic hypodensity in the right hepatic lobe likely corresponds to a cyst, though is indeterminate in the setting of cirrhosis. Consider follow-up MRI of the abdomen with and without contrast if warranted. 3. Cholelithiasis without evidence of acute cholecystitis. 4. Mild colonic diverticulosis without evidence of acute diverticulitis. Fleischner guidelines were followed. Dictated By: n Prescriptions: New lactulose 10 gram/15 mL (15 mL) solution 20 g PO BID PRN (Reason: constipation) Qty: 600 0RF No Action diltiazem HCl 120 mg capsule,extended release 24hr 120 mg PO DAILY Qty: 90 0RF Rx Instructions: MUST ATTEND FOLLOW-UP FOR REFILLS cephalexin 500 mg capsule 500 mg PO Q8H Qty: 21 0RF gabapentin 600 mg tablet 1,200 mg PO TID oxycodone-acetaminophen 10-325 mg tablet 1 tab PO TID PRN fentanyl 50 mcg/hr patch 72 hour 1 patch topical Q OTHER DAY albuterol sulfate 90 mcg/actuation HFA aerosol inhaler 2 puff inhalation Q4H Referrals: Nikita Stern MD [Physician] - 2 weeks (Liver cirrhosis, abdominal pain)
[2023-10-24] MEDS: ondansetron HCL 4 MG/2 ML VIAL IVPUSH (03:00)
[2023-10-24] MEDS: 0.9 % Sodium Chloride 1,000 ML 999 ML IV (03:01)
[2023-10-24] MEDS: Morphine Sulfate 4 MG/ML CARTRIDGE IVPUSH ×2 (03:02→05:19)
[2023-10-24 04:00] VITALS: BP 139/56; PULSE 71; RESP 16; TEMP 37; O2SAT 90
--- NOTE | 2023-10-24 04:40 | MHC.EDTECH ---
Hourly rounds and vitals completed,patient's O2 sats were 89 to 90% on room air, Patient is having no difficulty breathing,MD and RN were made aware. Call lopez in reach
[2023-10-24] MEDS: iohexoL 350 MG/ML 100 ML INFUS..BTL 85 ML IV (04:55)
[2023-10-24 06:00] VITALS: BP 132/58; PULSE 69; RESP 16; TEMP 37; O2SAT 82
[2023-10-24 06:10] VITALS: O2SAT 95
--- NOTE | 2023-10-24 06:11 | MHC.EDTECH ---
Hourly rounds and vitals completed, patient placed on 2L V NC per providers request due to patient's low O2 sats at 82%,Patient is now 95%,RN is aware Patient is having no difficulty breathing and is resting at this time. Call lopez in reach
== END 2023-10-24 06:47 | disposition home or self-care (01) ==
PROVIDERS: Emergency Provider Emergency Medicine Emergency Medical Services; PCP Internal Medicine
DX: K59.00 Constipation, unspecified (principal); R18.8 Other ascites; K74.60 Unspecified cirrhosis of liver; R10.30 Lower abdominal pain, unspecified; I48.0 Paroxysmal atrial fibrillation; Z98.84 Bariatric surgery status; Z79.899 Other long term (current) drug therapy
CPT/HCPCS: 36415; 74018; 74177; 80048; 80076; 85025; 96374; 96375; 96376; 99284; 99285; J2270; J2405; Q9967

== ENCOUNTER 2024-04-19 09:11 | Outpatient (AMB) | payer BC, SELFPAY ==
[2024-04-19 09:17] VITALS: BP 126/60; PULSE 64; BMI 27.5
--- NOTE | 2024-04-19 09:17 | A.OFFVIS_ITS ---
Vital Signs 04/19/24 09:17 Height 5 ft 6 in Weight 170 lb 3.15 oz BMI 27.5 BP 126/60 Blood Pressure Location Lt brachial Position Sitting Pulse 64 Pulse Source Monitor Intake Visit Reasons: Over Due F/U refill meds Tobacco Classer Required: No Accompanied by: Self / Same As Patient Allergies bee pollen [BEE STINGS] Allergy (Unknown, Verified 10/23/23 20:28) RASH ketorolac [From TORADOL] Allergy (Unknown, Verified 10/23/23 20:28) AGGITATION latex [LATEX] Allergy (Unknown, Verified 10/23/23 20:28) RASH pentazocine [From Talwin] Allergy (Unknown, Verified 10/23/23 20:28) Anaphylaxis Medication List - Last Reconciled 04/19/24 by Corbin Duran MD albuterol sulfate 90 mcg/actuation 2 puffs inhalation Q4H diltiazem HCl CD 120 mg PO DAILY fentanyl 50 mcg/hr 1 patch topical Q OTHER DAY gabapentin 1,200 mg PO TID lactulose 20 grams (30 mL) PO BID PRN oxycodone 10 mg PO TID PRN rifaximin (Xifaxan) 550 mg PO BID spironolactone 25 mg PO DAILY tizanidine 4 mg PO BID HPI Comments Details: Yuli returns for follow-up regarding atrial fibrillation. To recall, she was initially seen for consultation regarding preoperative risk stratification for bariatric surgery. Then found to be incidentally in atrial fibrillation with rapid rate. She had BALJIT and cardioversion. Then was on flecainide and diltiazem but flecainide was later stopped. Now she takes diltiazem only. Overall, she still feels some palpitations off and on but she states it is all f rom stress. We discussed about another echocardiogram/Holter but she states she does not want do any testing and wants to leave it as it is. Otherwise, seems to be getting along. 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 Mother No problems noted. Brother No problems noted. Sister No problems noted. Social History Alcohol intake: current Alcohol intake frequency: 0-2 drinks per day Substance Use Type: Marijuana Review of Systems Const Denies chills, Denies fatigue, Denies fever(s), Denies frequent falls, Denies weakness, Denies weight gain and Denies weight loss ENT Denies dizziness Card Denies chest pain, Denies leg edema, Denies lightheadedness, Denies palpitations, Denies dyspnea and Denies dyspnea on exertion Resp Denies cough, Denies dyspnea and Denies dyspnea on exertion GI Denies hematochezia Musc Denies abnormal gait, Denies muscle weakness, Denies numbness, Denies radiating pain into limb and Denies tingling Neuro Denies abnormal gait, Denies dizziness, Denies frequent falls, Denies numbness, Denies tingling and Denies weakness Endo Denies fatigue and Denies palpitations Physical Exam Vital Signs: Last Vital Signs Pulse 64 04/19/24 09:17 BP 126/60 04/19/24 09:17 BMI result Body Mass Index 27.5 Const General: comfortable and no acute distress Orientation/consciousness: patient oriented x3 HEENT Other: Unremarkable Head: Yes normal to inspection Neck Neck: Yes normal visual inspection Chest Chest palpation & inspection: normal inspection of the chest Resp Auscultation: clear to auscultation bilaterally Cardio Palpation: normal PMI Heart sounds: S1 normal heart sound present, S2 normal heart sound present, no gallops, Murmur heart sound present systolic II/ and at the right sternal border and no rubs GI Palpation (GI): Soft to palpation Back/Spine/Pelvis Other: unremarkable Skin General skin exam: no rashes or lesions noted Neuro General: patient oriented x3 Extrem General: Yes normal to inspection Psych Mental Status: mental status grossly normal Office Procedures EKG Details: EKG with sinus rhythm at 64/Min; premature supraventricular contractions; [place] [id number], Complete Assessment & Plan Assessment & Plan (1) PAF (paroxysmal atrial fibrillation): Code(s): I48.0 - Paroxysmal atrial fibrillation Category: Medical (2) Status post bariatric surgery: Code(s): Z98.84 - Bariatric surgery status Category: Surgical Plan Palpitations possibly from supraventricular ectopy/anxiety and less likely from recurrent atrial fibrillation. We discussed about doing another Holter, but she does not want to do any testing. In that case, continue Diltiazem. As she has lost lot of weight after bariatric surgery, reduced likelihood of recurrent atrial fibrillation but can still happen. If any ongoing concerns, she will contact us. Total time spent including review of data, counseling, documentation, coordination care-31 minutes. Coding Level of Care Code Est Pt Level 4 (92811) Diagnoses PAF (paroxysmal atrial fibrillation) I48.0 Status post bariatric surgery Z98.84 CPT Codes EKG - CPT: 59539-[id number], Complete ([id number])
== END 2024-04-19 09:44 | disposition home or self-care (01) ==
LOC: HO.HCS 09:11
PROVIDERS: PCP Internal Medicine; Visit Provider Internal Medicine
DX: I48.0 Paroxysmal atrial fibrillation (principal); Z98.84 Bariatric surgery status
CPT/HCPCS: 93010; 99214

== ENCOUNTER → 2024-04-19 09:11 | Outpatient (BNVA) | payer BC, SELFPAY | PROVIDERS: PCP Internal Medicine; Visit Provider Internal Medicine | DX: I48.0 Paroxysmal atrial fibrillation (principal); Z79.899 Other long term (current) drug therapy; Z98.84 Bariatric surgery status | CPT/HCPCS: 93005 ==

== ENCOUNTER 2025-05-08 08:24 | Outpatient (REF) | payer BC, SELFPAY ==
[2025-05-08 10:43] LABS: B Type Natriuretic Peptide 115 pg/mL (<100)
[2025-05-08 11:01] LABS: Anion Gap 12 (12-20); Blood Urea Nitrogen 19 mg/dL (9-16); Calcium 9.3 mg/dL (8.4-10.2); Carbon Dioxide 27 mmol/L (22-29); Chloride 112 mmol/L (96-108); Estimated Glomerular Filt Rate > 60; Potassium 4.3 mmol/L (3.3-5.1); Sodium 147 mmol/L (135-145)
== END 2025-05-08 08:25 | disposition home or self-care (01) ==
LOC: HO.LAB 08:24
PROVIDERS: PCP Internal Medicine; Visit Provider Nurse Practitioner Family
DX: I48.0 Paroxysmal atrial fibrillation (principal); R60.0 Localized edema; Z79.51 Long term (current) use of inhaled steroids; Z79.2 Long term (current) use of antibiotics; Z79.899 Other long term (current) drug therapy
CPT/HCPCS: 36415; 80048; 83880; 93005

== ENCOUNTER 2025-05-08 08:24 | Outpatient (AMB) | payer BC, SELFPAY ==
--- OUTSIDE RECORDS SUMMARY | 2025-05-08 08:36 | XMS_ITS | Clinical Summary ---
Author Organization [facility] Facility Address [address] [place] [id number] Care Team Providers Care Adobe Maker Name Role Phone Unavailable Primary Care Provider Unavailabl e Social History Tobacco Use Types Packs/Day Years Used Date Smoking Tobacco: Never Assessed Comments Unknown Sex and Gender Information Value Date Recorded Sex Assigned at Not on file Legal Sex Female 8:29 AM EDT Gender Identity Not on file Sexual Orientation Not on file Plan of Treatment Health Maintenance Due Date Last Done Comments Breast Cancer Screening 1960 Colorectal Cancer Screening: Annual FOBT 2009 Colorectal Cancer Screening: Colonoscopy 2009 Colorectal Cancer Screening: Sigmoidoscopy 2009 Pneumococcal Vaccine: 50+ Years (1 of 1 - PCV) 010 Hepatitis B Vaccine (1 of 3 - Risk 3-dose series) 06/12 Influenza Vaccine (#1) 2025 Insurance [facility] [place] [address]
--- OUTSIDE RECORDS SUMMARY | 2025-05-08 08:36 | XMS_ITS ---
Author Organization [facility] Care Team Providers Care Emergency Manager Name Role Phone Daniel Garcia Unavailable Unavailable Kamla Desai Unavailable Unavailable Stella Helm Unavailable Unavailable Allergies and adverse reactions Code CodeSystem Substance Reaction Severity StartDate Concern Status Toradol Unknown 08/10/2023 active Latex Unknown 08/10/2023 active Benadryl Unknown 08/10/2023 active Care Team Name Role Address Phone Organization Dates Daniel Garcia PCP [address], [address], [place] (Office): : [facility] 08/10/2023 - 08/25/2023 Kamla Desai [address], [address], [place] (Office): : [facility] 08/10/2023 - 08/25/2023 Stella Helm [address], [address], [place] (Office): [facility] 08/10/2023 - 08/25/2023 Immunizations Immunization Status Vaccine Details Vaccine Code CodeSystem Date Notes Influenza cancelled Influenza, split virus, trivalent, injectable, contains preservative 141 CVX created date: 08/11/2023 consent date: 08/11/2023 Educated by on 08/10/2023 Resident educated using the VIS and still refused. Tetanus completed tetanus immune globulin 13 CVX created date: 08/10/2023 administer ed date: 04/20/2020 (COVID-19) Moderna Original Primary Dose Vaccine 1 of 2 completed SARS-COV-2 (COVID-19) vaccine, mRNA, spike protein, LNP, preservative free, 100 mcg/0.5mL dose or 50 mcg/0.25mL dose 207 CVX created date: 08/10/2023 administer ed date: 03/19/2021 (Pneumococcal) PCV13- Conjugate 13-valent Vaccine cancelled pneumococcal conjugate vaccine, 13 valent 133 CVX created date: 08/11/2023 consent date: 08/11/2023 Educated by on 08/10/2023 Resident educated using the VIS and still refused. (COVID-19) Moderna Original Primary Dose Vaccine 2 of 2 completed SARS-COV-2 (COVID-19) vaccine, mRNA, spike protein, LNP, preservative free, 100 mcg/0.5mL dose or 50 mcg/0.25mL dose 207 CVX created date: 08/10/2023 administer ed date: 04/18/2021 Mental Status Section Date Assessment Total Score Description 08/25/2023 BIMS 13 cognitively int act CAM 0 No delirium ind icated PHQ-9 01 minimal depress ion 08/16/2023 BIMS 13 cognitively int act CAM 0 No delirium ind icated PHQ-9 01 minimal depress ion Problems Problem # Description Date of onset Resolved Date Code CodeSystem Concern Status 1 CHRONIC KIDNEY DISEASE, UNSPECIFIED 08/10/[address] active 2 CHRONIC VIRAL HEPATITIS C 08/10/[address] active 3 COVID-19 08/10/[address] active 4 FIBROMYALGIA 08/10/[address] acti ve 5 HEPATIC ENCEPHALOPATHY 08/10/[address] active 6 HYPERLIPIDEMIA, UNSPECIFIED 08/10/[address] active 7 MUSCLE WASTING AND ATROPHY, NOT ELSEWHERE CLASSIFIED, MULTIPLE SITES 08/10/[address] active 8 OTHER ASTHMA 08/10/[address] acti ve 9 OTHER DISORDERS OF BILIRUBIN METABOLISM 08/10/[address] active 10 OTHER LACK OF COORDINATION 08/10/[address] active 11 PAROXYSMAL ATRIAL FIBRILLATION 08/10/[address] active 12 UNSPECIFIED ABNORMALITIES OF GAIT AND MOBILITY 08/10/[address] active 13 UNSPECIFIED CIRRHOSIS OF LIVER 08/10/[address] active 14 UNSPECIFIED LACK OF COORDINATION 08/10/[address] active 15 UNSPECIFIED PROTEIN-CALORIE MALNUTRITION 08/10/[address] active Reason for Referral No Reasons for Referral Entered Social History Social History Observation Description Start Date End Date Code Code System Current Smoking Status Tobacco smoking consumption unknown 915098928 SNOMED CT Sex Assigned At Female 1960 06702-8 [facility] Gender Identity Vital Signs Code Code System Vitals Name Values and Units Timing Information 34676-9 [facility] Pain Level Value=0.0 08/25/2023 53889-2 [facility] Weight Egszj=287.0 Units=Lbs 9279-1 [facility] Respiratory Rate Value=18.0 Units=/m in 08/23/2023 8462-4 [facility] Blood Pressure-Diastolic Value=65 Un its=mmHg 08/23/2023 8480-6 [facility] Blood Pressure-Systolic Wodlb=637 Un its=mmHg 08/23/2023 8310-5 [facility] Body Temperature Value=98.2 Units= F 08/23/2023 8867-4 [facility] Heart rate Value=80.0 Units=/min 04036-4 [facility] O2 % BldC Oximetry Value=98.0 Units= % 08/23/2023 8302-2 [facility] Height Value=64.0 Units=Inches 08/10/2023
[2025-05-08 08:40] VITALS: BP 128/60; PULSE 63; BMI 28.9
--- NOTE | 2025-05-08 08:40 | A.OFFVIS_ITS ---
Vital Signs 05/08/25 08:40 Height 5 ft 6 in Weight 179 lb 0.246 oz BMI 28.9 BP 128/60 Blood Pressure Location Lt brachial Position Sitting Pulse 63 Pulse Source Monitor Intake Visit Reasons: 1 yr f/up Allergies bee pollen (BEE STINGS) Allergy (Unknown, Verified 05/08/25 08:43) RASH ketorolac (From TORADOL) Allergy (Unknown, Verified 05/08/25 08:43) AGGITATION latex (LATEX) Allergy (Unknown, Verified 05/08/25 08:43) RASH pentazocine (From Talwin) Allergy (Unknown, Verified 05/08/25 08:43) Anaphylaxis Medication List - Last Reconciled 05/08/25 by Becky Cardona, NERI-C albuterol sulfate 90 mcg/actuation 2 puffs inhalation Q4H diltiazem HCl CD 120 mg PO DAILY fentanyl 50 mcg/hr 1 patch topical Q OTHER DAY gabapentin 1,200 mg PO TID lactulose 20 grams (30 mL) PO BID PRN oxycodone 10 mg PO TID PRN rifaximin (Xifaxan) 550 mg PO BID spironolactone 25 mg PO DAILY HPI HPI 1 yr f/up: Details: Yuli is a 64-year-old female with past medical history of mild obstructive sleep apnea, prior obesity with bariatric surgery, paroxysmal atrial fibrillation who presents for follow-up. Her last prior visit was 04/19/2024. Today she reports she has been doing well over the last year. She has no concerning recurrent paroxysmal AFib. She denies heart palpitations, chest discomfort, shortness of breath, PND, orthopnea. Her primary concern today is of lower extremity swelling, right greater than left. She tells me she is having issues with her right knee and recently received an injection there. She follows a low-salt diet. She remains active with swimming and rides her bike at times. Compliant with medications. [facility] Medical History [employer] current use of antiarrhythmic drug PAF (paroxysmal atrial fibrillation) COPD (chronic obstructive pulmonary disease) ESTEFANIA (obstructive sleep apnea) Intestinal malabsorption Surgical History Status post bariatric surgery History of arthroscopic knee surgery Obesity History of sleeve gastrectomy History of incisional hernia repair Family History Father No problems noted. Mother No problems noted. Brother No problems noted. Sister No problems noted. Social History Alcohol intake: current Alcohol intake frequency: 0-2 drinks per day Substance Use Type: Marijuana Review of Systems Const All systems reviewed & are unremarkable except as noted in HPI and below ENT Denies dizziness Card Denies chest pain, Denies chest pain at rest, Denies chest pain with activity, Denies rapid heart rate, Reports pedal edema, Denies edema, Reports leg edema, Denies lightheadedness, Denies palpitations, Denies dyspnea, Denies dyspnea on exertion and Denies orthopnea Resp Denies cough, Denies dyspnea and Denies dyspnea on exertion GI Denies hematochezia and Denies change in stool character Musc Details: swelling right lower leg > left lower leg. Reports vein ablation right leg in past. Right knee pain with recent injection. Denies abnormal gait, Denies limited range of motion, Denies muscle cramps, Denies muscle weakness, Denies numbness, Denies radiating pain into limb, Denies stiffness and Denies tingling Neuro Denies abnormal gait, Denies dizziness, Denies numbness and Denies tingling Endo Denies palpitations Physical Exam Vital Signs: Last Vital Signs Pulse 63 05/08/25 08:40 BP 128/60 05/08/25 08:40 BMI result Body Mass Index 28.9 Const General: cooperative, healthy appearing, comfortable and no acute distress Orientation/consciousness: patient oriented x3 Neck Neck: Yes normal visual inspection and Yes no JVD Resp Effort & Inspection: normal respiratory effort Auscultation: clear to auscultation bilaterally, no crackles, no rales, no rhonchi and no wheezes Cardio Rate: regular rate Rhythm: regular rhythm Heart sounds: S1 normal heart sound present, S2 normal heart sound present, no gallops, no murmurs and no rubs Neuro General: patient oriented x3 Extrem Other: mildly pitting edema to each lower leg and into ankle, R > L Psych Appearance: grossly normal Mental Status: mental status grossly normal Speech and movement: Normal speech and movement present Office Procedures EKG Details: Today, read by me, normal sinus rhythm with sinus arrhythmia, rate 63, QTC 433 milliseconds [id number], Complete Assessment & Plan Assessment & Plan (1) PAF (paroxysmal atrial fibrillation): Code(s): I48.0 - Paroxysmal atrial fibrillation Category: Medical Plan: Paroxysmal atrial fibrillation, with BALJIT cardioversion in the past. Previously treated with antiarrhythmics and rate slowing agent -and now on just diltiazem. No clinical or documented recurrent atrial fibrillation in the last year. EKG done today showing sinus rhythm with sinus arrhythmia, rate 63. Last echocardiogram 05/03/2020 showed EF 60-65%, biatrial enlargement, right greater than left. On last visit and today repeat echocardiogram and Holter monitor were recommended and she adamantly declines. Continue diltiazem. Cardiology follow-up 1 year, sooner if needed. (2) Edema: Code(s): R60.9 - Edema, unspecified Category: Medical Plan: Lower leg edema noted on examination today, right greater than left. No other signs that could indicate Congestive heart failure. She declines repeat echocardiogram. Will check labs today including BMP and BNP. Reviewed ongoing low-salt diet, leg elevation when sitting, compression stocking use. Informed her that issue such as venous insufficiency, hot weather which we are having, knee issues each can cause lower leg edema and it may not be cardiac related. If labs show elevated BNP then low-dose diuretic will be considered. Plan Time spent on chart review, documentation, interview and assessment Orders: Orders Basic Metabolic Panel Today R60.9 - Edema, unspecified B Type Natriuretic Peptide Today R60.9 - Edema, unspecified Coding Level of Care Code Est Pt Level 3 (10252) Complex EM visit Add On G2211 Diagnoses PAF (paroxysmal atrial fibrillation) I48.0 Edema R60.9 CPT Codes EKG - CPT: 48605-[id number], Complete ([id number]) Time Spent (min) 24
== END 2025-05-08 09:17 | disposition home or self-care (01) ==
LOC: HO.HCS 08:25
PROVIDERS: PCP Internal Medicine; Visit Provider Nurse Practitioner Family
DX: I48.0 Paroxysmal atrial fibrillation (principal); R60.9 Edema, unspecified
CPT/HCPCS: 93010; 99213